=== PATIENT | male | born 1965 | race American Indian/Alaskan Native ===

== ENCOUNTER 2016-11-18 22:49 | Emergency (ER) | payer SELFPAY ==
[2016-11-19 01:54] VITALS: BP 177/89
== END 2016-11-19 03:40 | disposition left against medical advice (07) ==
LOC: ED 22:49
DX: M79.1 Myalgia (principal); M54.9 Dorsalgia, unspecified; M79.604 Pain in right leg; Z53.21 Procedure and treatment not carried out due to patient leaving prior to being seen by health care provider